=== PATIENT | female | born 1985 | race Hispanic/Latino ===

== ENCOUNTER → 2017-03-04 | Outpatient (CLI) | payer MEDICAID, OTHER | END | disposition home or self-care (01) | LOC: OIH 10:50 | PROVIDERS: ATTEND Family Medicine | DX: Z02.71 Encounter for disability determination (principal) | CPT/HCPCS: 72040; 72100 ==

== ENCOUNTER 2020-03-01 18:06 | Emergency (ER) | payer MEDICAID, OTHER ==
[2020-03-01 18:46] LABS: BASOPHILS % (AUTO) 0.6 % (0.0-5.0); EOSINOPHILS % (AUTO) 2.7 % (0.0-8.0); HEMATOCRIT 40.6 % (36-48); MEAN CORPUSCULAR HEMOGLOBIN 29.5 pg (27.0-33.0); MEAN CORPUSCULAR HGB CONC 33.3 g/dL (32.0-36.0); MEAN CORPUSCULAR VOLUME 88.8 fL (79-99); NEUTROPHILS % (AUTO) 59.4 % (40.0-77.0); PLATELET COUNT (AUTO) 175 K/uL (130-400); RED BLOOD CELL COUNT(AUTO) 4.57 MIL/uL (4.00-5.50); WHITE BLOOD COUNT (AUTO) 7.2 K/uL (4.8-10.8)
[2020-03-01 18:56] LABS: CREATININE 0.6 mg/dL (0.5-1.5); POTASSIUM 3.9 mmol/L (3.5-5.1)
[2020-03-01 18:57] LABS: APPEARANCE,URINE Cloudy (CLEAR); BILIRUBIN,URINE Negative (NEGATIVE); COLOR,URINE Yellow (YELLOW); GLUCOSE, URINE (UA) Negative (NEGATIVE); KETONES,URINE Negative (NEGATIVE); LEUKOCYTE ESTERASE ,URINE Moderate (NEGATIVE); NITRATE,URINE Negative (NEGATIVE); OCCULT BLOOD,URINE Negative (NEGATIVE); PH,URINE 6.5 (5.0-8.0); PROTEIN,URINE Negative (NEGATIVE)
[2020-03-01 19:00] LABS: BILIRUBIN,TOTAL 0.6 mg/dL (0.2-1.0); MAGNESIUM 2.6 mg/dL (1.80-2.40); TOTAL PROTEIN, SERUM 7.6 g/dL (6.0-8.3)
[2020-03-01 19:06] LABS: AMPHET/METH SCREEN,URINE NEGATIVE (NEGATIVE); BARBITURATE SCREEN, URINE NEGATIVE (NEGATIVE); BENZODIAZEPINES SCREEN,URINE POSITIVE (NEGATIVE); CANNABINOID SCREEN,URINE POSITIVE (NEGATIVE); COCAINE SCREEN,URINE NEGATIVE (NEGATIVE); OPIATE SCREEN,URINE NEGATIVE (NEGATIVE); PHENCYCLIDINE SCREEN,URINE NEGATIVE (NEGATIVE)
[2020-03-01] MEDS ORDERED: ONDANSETRON HCL 4 MG/2 ML VIAL ONE (19:22)
[2020-03-01] MEDS ORDERED: MORPHINE SULFATE 4 MG/1ML SYG ONE (19:23)
[2020-03-01 19:32] LABS: BACTERIA,URINE Few /HPF (None Seen); RBC,URINE None Seen /HPF (0-1)
[2020-03-01] MEDS ORDERED: CEFTRIAXONE SODIUM 1 GM ONE (21:50)
[2020-03-01] MEDS ORDERED: SODIUM CHLORIDE 0.9% 50 ML IV ONE (21:52)
[2020-03-01] MEDS ORDERED: SODIUM CHLORIDE 0.9% 500ML 500 ML IV ONE (22:00)
== END 2020-03-01 22:47 | disposition home or self-care (01) ==
LOC: EDH 18:06
DX: K80.80 Other cholelithiasis without obstruction (principal); N39.0 Urinary tract infection, site not specified; F19.10 Other psychoactive substance abuse, uncomplicated
CPT/HCPCS: 36415; 76705; 80053; 80305; 81001; 81025; 82150; 83690; 83735; 85025; 87088; 96365; 96375; 99284; J0696; J2270; J2405; J7040

== ENCOUNTER 2024-06-11 23:00 | Inpatient (IN) | payer BC, MEDICAID ==
[~2024-06-11] VITALS: Ht 167.6 cm; Wt 86.0 kg
--- NOTE | 2024-06-11 23:02 | NUR ---
UA CUP PROVIDED
[2024-06-11 23:27] LABS: BASOPHILS # (AUTO) 0.04 K/uL (0.00-0.20); BASOPHILS % (AUTO) 0.3 % (0.0-5.0); EOSINOPHILS # (AUTO) 0.15 K/uL (0.00-0.70); EOSINOPHILS % (AUTO) 1.2 % (0.0-8.0); HEMATOCRIT 39.3 % (36-48); IMMATURE GRANULOCYTE ABSOLUTE 0.03 K/uL (0-1); LYMPHOCYTES % (AUTO) 16.2 % (21.0-51.0); MEAN CORPUSCULAR HEMOGLOBIN 29.8 pg (27.0-33.0); MEAN CORPUSCULAR HGB CONC 33.6 g/dL (32.0-36.0); MEAN CORPUSCULAR VOLUME 88.7 fL (79-99); MONOCYTES # (AUTO) 0.8 K/uL (0.1-1.0); NEUTROPHILS # (AUTO) 9.5 K/uL (1.8-7.7); NEUTROPHILS % (AUTO) 76.1 % (40.0-77.0); PLATELET COUNT (AUTO) 181 K/uL (130-400); RED BLOOD CELL COUNT(AUTO) 4.43 MIL/uL (4.00-5.50); RED CELL DISTRIBUTION WIDTH 12.7 % (11.0-15.5); WHITE BLOOD COUNT (AUTO) 12.5 K/uL (4.8-10.8)
[2024-06-11] MEDS: 0.9%NACL 1000ML 1,000 ML IV STA (23:30)
[2024-06-11] MEDS: morPHINE 2 MG SYG IVP STA (23:30)
[2024-06-11] MEDS: ondanSETRON 4MG INJ IVP STA (23:30)
[2024-06-11 23:35] LABS: CREATININE 0.8 mg/dL (0.5-1.0); POTASSIUM 3.7 mmol/L (3.5-5.1)
[2024-06-11 23:37] LABS: ADD UA MICROSCOPIC NO; APPEARANCE,URINE CLEAR (CLEAR); BILIRUBIN,URINE NEGATIVE (NEGATIVE); COLOR,URINE LIGHT-YELLOW (YELLOW); GLUCOSE, URINE (UA) NEGATIVE (NEGATIVE); KETONES,URINE NEGATIVE (NEGATIVE); LEUKOCYTE ESTERASE ,URINE NEGATIVE Leu/uL (NEGATIVE); NITRATE,URINE NEGATIVE (NEGATIVE); OCCULT BLOOD,URINE NEGATIVE (NEGATIVE); PH,URINE 6.5 (5.0-8.0); PROTEIN,URINE NEGATIVE (NEGATIVE); UROBILINOGEN,URINE 0.2 mg/dL (0.2-1.0)
[2024-06-12] VITALS (8 sets, daily range): BP systolic 102–116; BP diastolic 60–73; PULSE 72–107; RESP 18–21; TEMP 98–98.9; O2SAT 96–99
--- NOTE | 2024-06-12 00:14 | HMCIMG ---
CT ABDOMEN/PELVIS W/O CONTRAST HISTORY: Left lower abdominal pain COMPARISON: 05/07/2011 TECHNIQUE: Multiple sequential axial images of the abdomen and pelvis were obtained from the dome of the diaphragm through symphysis pubis. Patient was not given contrast through intravenous route. Oral contrast was not given. FINDINGS: No pleural effusion is seen bilaterally. There is no evidence of parenchymal disease or pulmonary nodule of the visualized lower lungs. Degenerative changes of the thoracolumbar spine are present. The heart is not enlarged. The liver, spleen, adrenal glands and pancreas are unremarkable. There is no evidence of hydronephrosis bilaterally. No evidence of renal stone is seen. Fecal material is seen in the colon. There are normal size retroperitoneal and mesenteric lymph nodes. No ascites is seen. No CT evidence of acute appendicitis is seen. Clinical correlation is recommended. There is mesenteric fat stranding adjacent to the sigmoid colon suspicious for early acute diverticulitis in the proper clinical setting. No focal abscess is seen. Pelvic sidewalls are symmetric bilaterally. The bladder is moderately distended. IMPRESSION: 1. There is mesenteric fat stranding adjacent to the sigmoid colon suspicious for early acute diverticulitis in the proper clinical setting. No focal abscess is seen. CT was performed with one or more following dose reduction techniques: automated exposure control, adjustment of the mA and kv according to patient's size, or use of a iterative reconstruction technique.
--- NOTE | 2024-06-12 00:24 | ERN ---
ED Note History of Present Illness Stated Complaint: RT LOWER ABD PAIN Chief Complaint: Abdominal Pain Time Seen by MD: 23:04 Time Seen by Midlevel: 23:10 Dictation: 38-year-old female coming in with complaints of left lower quadrant pain onset about 1800. Patient states she was having a bowel movement she felt she could not complete the bowel movement so she took some stool softeners and pain worsened. Denies any diarrhea or blood in stool. Denies any nausea or vomiting. Allergies: Coded Allergies: No Known Allergies (Unverified Allergy, Unknown, 06/11/24) Home Meds No Active Prescriptions or Reported Meds Past Medical History Past Medical History: No Pertinent History Surgical History: Cholecystectomy LMP: Jun 02, 2024 Review of System Dictation Constitutional: Negative for fever,chills, and weight loss Eyes: Negative for injury, pain,redness, and discharge ENT: Negative for injury,pain or swelling Cardiovascular: Negative for chest pain, palpitations, and edema Respiratory: Negative for shortness of breath, cough, and wheezing, Abdomen/GI: Complaining of left lower quadrant pain, nausea, vomiting, diarrhea, and constipation Back: Negative for injury and pain : Negative for injury, bleeding and discharge MS/Extremity: Negative for injury and deformity Skin: Negative for rash, and discoloration Neuro: Negative for headache, weakness, numbness, tingling, and seizure Psych: Negative for suicide ideation, homicidal ideation, and hallucinations Review of Systems: was completed Initial Vital Sign VS Vital Signs Date Time Temp Pulse Resp B/P (MAP) Pulse Ox O2 Delivery O2 Flow Rate FiO2 06/11/24 23:01 100.9 107 20 126/84 99 Room Air 06/12/24 00:51 0 21 Physical Exam Dictation General: awake, alert, NAD Head/Face: Normocephalic, atraumatic Eyes: PERRL, EOMI, vision at baseline ENT: oral cavity clear, TMs clear, no signs of infection Neck: Trachea midline, supple, no nuchal rigidity Cardiovascular: RRR, normal S1/S2, No MRGs, no JVD Respiratory: CTAB, no respiratory distress, No rales or wheezes Abdomen: Soft, drawn palpation to the left lower quadrant, non-distended, normal bowel sounds, no guarding or rebound. Skin: Warm, dry, normal turgor, no rash MS/Extremity: Pulses equal, no cyanosis, neurovascular intact, FROM Neuro: COAx4, GCS 15, strength 5/5, CN 2-12 intact, normal cerebellar exam, normal gait, Psych: Normal behavior, mood, and affect normal Results (Laboratory/Radiology) Laboratory/Radiology Laboratory Tests Test 06/11/24 23:20 06/11/24 23:30 White Blood Count 12.5 K/uL (4.8-10.8) H Red Blood Count 4.43 MIL/uL (4.00-5.50) Hemoglobin 13.2 g/dL (12.0-16.0) Hematocrit 39.3 % (36-48) Mean Corpuscular Volume 88.7 fL (79-99) Mean Corpuscular Hemoglobin 29.8 pg (27.0-33.0) Mean Corpuscular Hemoglobin Concent 33.6 g/dL (32.0-36.0) Red Cell Distribution Width 12.7 % (11.0-15.5) Platelet Count 181 K/uL (130-400) Mean Platelet Volume 11.5 fL (7.5-10.5) H Immature Granulocyte % (Auto) 0.2 % (0-1) Neutrophils (%) (Auto) 76.1 % (40.0-77.0) Lymphocytes (%) (Auto) 16.2 % (21.0-51.0) L Monocytes (%) (Auto) 6.0 % (3.0-13.0) Eosinophils (%) (Auto) 1.2 % (0.0-8.0) Basophils (%) (Auto) 0.3 % (0.0-5.0) Neutrophils # (Auto) 9.5 K/uL (1.8-7.7) H Lymphocytes # (Auto) 2.0 K/uL (1.0-4.8) Monocytes # (Auto) 0.8 K/uL (0.1-1.0) Eosinophils # (Auto) 0.15 K/uL (0.00-0.70) Basophils # (Auto) 0.04 K/uL (0.00-0.20) Absolute Immature Granulocyte (auto 0.03 K/uL (0-1) Nucleated Red Blood Cells 0.0 % (0.0-0.19) Sodium Level 139 mmol/L (136-145) Potassium Level 3.7 mmol/L (3.5-5.1) Chloride Level 102 mmol/L (101-111) Carbon Dioxide Level 32 mmol/L (21-32) Blood Urea Nitrogen 10 mg/dL (7-18) Creatinine 0.8 mg/dL (0.5-1.0) Glomerular Filtration Rate Calc 98 mL/min (>90) Random Glucose 116 mg/dL (70-105) H Total Calcium 9.0 mg/dL (8.5-10.1) Serum Test, Qualitative NEGATIVE (NEGATIVE) Urine Color LIGHT-YELLOW (YELLOW) Urine Appearance CLEAR (CLEAR) Urine pH 6.5 (5.0-8.0) Urine Specific [place] 1.016 (1.001-1.031) Urine Protein NEGATIVE mg/dL (NEGATIVE) Urine Glucose (UA) NEGATIVE mg/dL (NEGATIVE) Urine Ketones NEGATIVE mg/dL (NEGATIVE) Urine Occult Blood NEGATIVE (NEGATIVE) Urine Nitrate NEGATIVE (NEGATIVE) Urine Bilirubin NEGATIVE mg/dL (NEGATIVE) Urine Urobilinogen 0.2 mg/dL (0.2-1.0) Urine Leukocyte Esterase NEGATIVE Minerva/uL Labs Reviewed?: Yes CT Scan Comment: [place] [id number] [address] IMAGING REPORT Signed PATIENT: KAITLYNN CASTILLO MR#: [id number] : 1985 SEX: F AGE: 38 LOCATION: [facility] ORDER [id number] STATUS: [facility] REPORT#: [id number] SERVICE [id number] REASON: llq pain ORDERING PHYSICIAN: AURY HARGROVE NP PROCEDURE: ABD PEL WO - CT ABDOMEN/PELVIS W/O CONTRAST CT ABDOMEN/PELVIS W/O CONTRAST HISTORY: Left lower abdominal pain COMPARISON: 05/07/2011 TECHNIQUE: Multiple sequential axial images of the abdomen and pelvis were obtained from the dome of the diaphragm through symphysis pubis. Patient was not given contrast through intravenous route. Oral contrast was not given. FINDINGS: No pleural effusion is seen bilaterally. There is no evidence of parenchymal disease or pulmonary nodule of the visualized lower lungs. Degenerative changes of the thoracolumbar spine are present. The heart is not enlarged. The liver, spleen, adrenal glands and pancreas are unremarkable. There is no evidence of hydronephrosis bilaterally. No evidence of renal stone is seen. Fecal material is seen in the colon. There are normal size retroperitoneal and mesenteric lymph nodes. No ascites is seen. No CT evidence of acute appendicitis is seen. Clinical correlation is recommended. There is mesenteric fat stranding adjacent to the sigmoid colon suspicious for early acute diverticulitis in the proper clinical setting. No focal abscess is seen. Pelvic sidewalls are symmetric bilaterally. The bladder is moderately distended. IMPRESSION: 1. There is mesenteric fat stranding adjacent to the sigmoid colon suspicious for early acute diverticulitis in the proper clinical setting. No focal abscess is seen. CT was performed with one or more following dose reduction techniques: automated exposure control, adjustment of the mA and kv according to patient's size, or use of a iterative reconstruction technique. DICTATED BY: BILLY ESPARZA MD DATE: 06/12/24 000 ELECTRONICALLY SIGNED BY: BILLY ESPARZA MD DATE: 06/12/24 001 Close ED Course ED Course Orders Procedure Category Date Status Time Cbc With Differential LAB 06/11/24 Complete 23:07 Basic Metabolic Panel LAB 06/11/24 Complete 23:07 Testing, LAB 06/11/24 Complete Serum Hcg 23:07 Urinalysis Profile LAB 06/11/24 Complete 23:09 0.9%Nacl 1000ml (Ns PHA 06/11/24 In Process 1000ml) 23:09 Morphine 2mg Syg PHA 06/11/24 Complete (Morphine 2mg Syg) 23:09 Ondansetron 4mg Inj PHA 06/11/24 Complete (Zofran 4mg Inj) 23:09 Ct Abdomen/Pelvis W/O CT 06/11/24 Resulted Contrast 23:09 Morphine 2mg Syg PHA 06/12/24 Complete (Morphine 2mg Syg) 00:22 Ketorolac PHA 06/12/24 Complete Tromethamine 15mg/Ml 00:22 Zosyn 3.375gm+Ns 50ml PHA 06/12/24 Complete (Zosyn 3.375gm+Ns 00:51 Acetaminophen 500mg PHA 06/12/24 In Process Tab (Tylenol 500mg T 01:00 Current Medications Medications (Trade) Dose Ordered Sig/Kadeem Route PRN Reason Start Time Stop Time Status Last Admin Dose Admin Acetaminophen (TYLenol 500MG TAB) 1,000 mg ONCE ONCE PO 06/12/24 01:00 06/12/24 01:01 Ketorolac Tromethamine (toRADol) 15 mg ONCE STAT IV 06/12/24 00:22 06/12/24 00:30 DC 06/12/24 00:35 Morphine Sulfate (morPHINE 2MG SYG) 2 mg ONCE STAT IVP 06/11/24 23:09 06/11/24 23:12 DC 06/11/24 23:30 Morphine Sulfate (morPHINE 2MG SYG) 2 mg ONCE STAT IVP 06/12/24 00:22 06/12/24 00:30 DC 06/12/24 00:35 Ondansetron HCl (zoFRAN 4MG INJ) 4 mg ONCE STAT IVP 06/11/24 23:09 06/11/24 23:12 DC 06/11/24 23:30 Piperacillin Sod/ Tazobactam Sod (Zosyn 3.375gm+NS 50ml) 3.375 gm ONCE STAT IVPB 06/12/24 00:51 06/12/24 00:54 DC Sodium Chloride 1,000 ml @ 100 mls/hr Q10H STAT IV 06/11/24 23:09 06/12/24 09:08 06/11/24 23:30 Vital Signs Date Time Temp Pulse Resp B/P (MAP) Pulse Ox O2 Delivery O2 Flow Rate FiO2 06/12/24 00:51 100.4 95 19 114/70 100 Room Air* 0 21 06/11/24 23:01 100.9 107 20 126/84 99 Room Air Medical Decision Making MDM MDM: 38-year-old female coming in with complaints of left lower quadrant pain onset about 1800. Patient states she was having a bowel movement she felt she could not complete the bowel movement so she took some stool softeners and pain worsened. Denies any diarrhea or blood in stool. Denies any nausea or vomiting. Lab work unremarkable. Patient came in with a low-grade temp of a 100.9. CT scan shows acute early diverticulitis. Patient received two doses of morphine and Toradol is states she is still having abdominal pain. Plan was to discharge patient but unable to control pain. Patient now will be admitted for diverticulitis, intractable abdominal pain. Antibiotics initiated in the emergency room. Spoke to Dr. Timothy, okay to admit under their service. Differential diagnosis: Urinary tract infection, gastroenteritis, diverticulitis Rationale: Tests considered and ordered secondary to shared decision making include: labs, ECG and radiology Previous outside records reviewed: Old ER visits. Risk of complication and/or morbidity or mortality of patient management: None Medications-Per medication reconciliation Need for hospitalization: Patient does meet criteria for hospitalization. Need for emergency major/minor surgery: No There are no social concerns with this patient. Prescription drug management Prescriptions will include symptomatic care Patient's prior external medical records from other ER visits were reviewed by me as indicated. Prior testing and results from previous visits were reviewed. Prior tests were taken into account with medical decision making and resource utilization, independent historian/historians were used to obtain complete medical history. I independently interpreted the test that were performed, results were reviewed by me and considered findings on radiology if ordered. Medical management and examination interpretation discussions were had by me with other qualified healthcare professionals as indicated for the patient's care. DX & DISP Disposition: Inpatient Decision to Admit Date: Jun 12, 2024 Decision to Admit Time: 00:59 Departure Impression: Primary Impression: Diverticulitis Additional Impression: Intractable abdominal pain Condition: Stable Scripts No Active Prescriptions or Reported Meds Referrals: SOFÍA ROJAS MD (PCP) I have reviewed the case, and I agree with, Diagnosis and Plan AURY HARGROVE NP Jun 12, 2024 00:24
[2024-06-12] MEDS: ketOROlac 15MG/ML VIAL (15MG/ML) IV STA (00:35)
[2024-06-12] MEDS: morPHINE 2 MG SYG IVP STA (00:35)
--- NOTE | 2024-06-12 00:55 | NUR ---
PATIENT DID NOT BRING HOME MEDICATIONS
[2024-06-12] MEDS: acetaMINOPHEN 500 MG TABLET PO ONE (00:59)
[2024-06-12] MEDS: ZOSYN 3.375GM +NS 50ML IVPB STA (00:59)
[2024-06-12] MEDS ORDERED: ondanSETRON 4MG INJ IVP PRN (01:00)
[2024-06-12] MEDS ORDERED: acetaMINOPHEN 325 MG TAB PO PRN (01:00)
[2024-06-12] MEDS: DEXTROSE 5 % AND 0.9 % NACL 1,000 ML IV SCH (01:17)
[2024-06-12] MEDS ORDERED: DEXT20CA4 PO (03:35)
[2024-06-12 07:52] LABS: BASOPHILS # (AUTO) 0.03 K/uL (0.00-0.20); BASOPHILS % (AUTO) 0.3 % (0.0-5.0); EOSINOPHILS # (AUTO) 0.12 K/uL (0.00-0.70); HEMATOCRIT 36.8 % (36-48); IMMATURE GRANULOCYTE ABSOLUTE 0.04 K/uL (0-1); LYMPHOCYTES # (AUTO) 1.8 K/uL (1.0-4.8); LYMPHOCYTES % (AUTO) 15.1 % (21.0-51.0); MEAN CORPUSCULAR HEMOGLOBIN 29.8 pg (27.0-33.0); MEAN CORPUSCULAR HGB CONC 33.2 g/dL (32.0-36.0); MEAN CORPUSCULAR VOLUME 89.8 fL (79-99); MONOCYTES # (AUTO) 0.8 K/uL (0.1-1.0); MONOCYTES % (AUTO) 7.2 % (3.0-13.0); NEUTROPHILS # (AUTO) 8.8 K/uL (1.8-7.7); NEUTROPHILS % (AUTO) 76.1 % (40.0-77.0); PLATELET COUNT (AUTO) 165 K/uL (130-400); RED CELL DISTRIBUTION WIDTH 12.8 % (11.0-15.5); WHITE BLOOD COUNT (AUTO) 11.6 K/uL (4.8-10.8)
[2024-06-12 07:59] LABS: CREATININE 0.7 mg/dL (0.5-1.0); MAGNESIUM 1.7 mg/dL (1.80-2.40); POTASSIUM 4.2 mmol/L (3.5-5.1)
[2024-06-12] MEDS ORDERED: PoTASSium chloRIDE 20MEQ ER 20 MEQ ERTAB PO PRN (09:00)
[2024-06-12] MEDS ORDERED: 0.9%NACL 50ML IV SCH (09:00)
[2024-06-12] MEDS ORDERED: PoTASSium chl 10% ELIXIR 20MEQ 20 MEQ/15 ML UDCUP PO PRN (09:00)
[2024-06-12] MEDS ORDERED: PoTASSium chloRIDE 20MEQ/100ML 100 ML IV PRN (09:00)
[2024-06-12] MEDS: ZOSYN 3.375GM +NS 50ML IVPB SCH (10:09)
[2024-06-12] MEDS: MAGNESIUM 2GM PREMIX 50ML 50 ML IV PRN (15:39)
--- NOTE | 2024-06-12 16:08 | NUR ---
DCP -- Home Patient states lives with her four children in a house with one step entrance and tub. 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 States able to complete ADL's on her own. Denies medical devices. Denies home health services, home care provider or dialysis. Upon discharge, Jenny Bergman, Mother [phone]/So Ortega, Life Partner [phone] and assist with care, as needed. At this time, does not foresee additional medical needs. Addendum: 06/12/24 at 1611 by JOSEP LITTLE RN CM Amended: Links added.
--- NOTE | 2024-06-12 17:47 | CONS ---
GENERAL SURGERY CONSULTATION NOTE Date/Time Patient Seen: [June 12, 2024 ] Requesting Physician: [Dr. Cesar Aguirre ] Reason for Consultation: [ Diverticulitis] History of Present Illness: [Patient presents to the hospital with a about 4 day history with the constipation and abdominal pain. Associated with the constipation abdominal pain has been some nausea. Prior to onset of symptoms patient was tolerating regular diet, having regular bowel function. Patient denies any melena, hematochezia, hematuria. Under around the hospital patient had CT scan done and some lab work done. I personally reviewed patient's CT scan. Patient's CT scan shows severe amount of constipation and some stranding around the sigmoid colon. The sigmoid colon also shows signs of diverticulosis. Patient's lab work shows a leukocytosis. Patient was started on IV fluids and IV antibiotics.] Past Medical History: [ ADHD] Past Surgical History: [Cholecystectomy ] Family History: [ Noncontributory] Social History: [ Patient denies any illicit drug use] Habits: [Never] smoker. [Denies] alcohol consumption. [Denies] illicit drug use Current Medications Medications (Trade) Dose Ordered Sig/Kadeem Route Start Time Stop Time Status Last Admin Dose Admin Dextrose/Sodium Chloride 1,000 ml @ 100 mls/hr Q10H IV 06/12/24 01:00 06/12/24 17:41 DC 06/12/24 17:07 100 MLS/HR Ketorolac Tromethamine (toRADol) 15 mg ONCE STAT IV 06/12/24 00:22 06/12/24 00:30 DC 06/12/24 00:35 15 MG Lactated Ringer's 1,000 ml @ 125 mls/hr Q8H IV 06/12/24 18:00 07/12/24 17:59 UNV Morphine Sulfate (morPHINE 2MG SYG) 2 mg ONCE STAT IVP 06/11/24 23:09 06/11/24 23:12 DC 06/11/24 23:30 2 MG Morphine Sulfate (morPHINE 2MG SYG) 2 mg ONCE STAT IVP 06/12/24 00:22 06/12/24 00:30 DC 06/12/24 00:35 2 MG Ondansetron HCl (zoFRAN 4MG INJ) 4 mg ONCE STAT IVP 06/11/24 23:09 06/11/24 23:12 DC 06/11/24 23:30 4 MG Piperacillin Sod/ Tazobactam Sod (Zosyn 3.375gm+NS 50ml) 3.375 gm ONCE STAT IVPB 06/12/24 00:51 06/12/24 00:54 DC 06/12/24 00:59 3.375 GM Piperacillin Sod/ Tazobactam Sod (Zosyn 3.375gm+NS 50ml) 3.375 gm Q8H IVPB 06/12/24 09:00 06/22/24 08:59 06/12/24 17:08 3.375 GM Sodium Chloride 1,000 ml @ 100 mls/hr Q10H STAT IV 06/11/24 23:09 06/12/24 09:08 DC 06/11/24 23:30 100 MLS/HR Sodium Chloride (NS 50ml) 50 ml AD IV 06/12/24 09:00 06/12/24 01:11 DC Review of Systems: Fourteen point review of systems negative except was mentioned in history of present illness Physical Examination: PHYSICAL EXAM EYES: Sclera white HENT: Oral nasal mucosa pink and moist NECK: Supple, . LUNGS: Unlabored CARDIOVASCULAR: Regular rate and rhythm ABDOMEN: Slightly protuberant. Tender to palpation in left lower quadrant. No rebound. No peritoneal signs. CENTRAL NERVOUS SYSTEM: Awake, alert, oriented x3 SKIN: No rashes, no swelling. LYMPHATICS: No peripheral lymphadenopathy MUSCULOSKELETAL: Motor and sensory function grossly intact EXTREMITIES: No cyanosis or clubbing Vital Signs (last 8hr) Date Time Temp Pulse Resp B/P (MAP) Pulse Ox O2 Delivery O2 Flow Rate FiO2 06/12/24 16:00 98 18 112/63 100 Room Air 06/12/24 12:00 98.2 80 18 116/73 91 Room Air Laboratory: [ ] Hematology Labs: Test 06/12/24 07:46 Range/Units White Blood Count 11.6 H 4.8-10.8 K/uL Red Blood Count 4.10 4.00-5.50 MIL/uL Hemoglobin 12.2 12.0-16.0 g/dL Hematocrit 36.8 36-48 % Mean Corpuscular Volume 89.8 79-99 fL Mean Corpuscular Hemoglobin 29.8 27.0-33.0 pg Mean Corpuscular Hemoglobin Concent 33.2 32.0-36.0 g/dL Red Cell Distribution Width 12.8 11.0-15.5 % Platelet Count 165 130-400 K/uL Mean Platelet Volume 11.4 H 7.5-10.5 fL Immature Granulocyte % (Auto) 0.3 0-1 % Neutrophils (%) (Auto) 76.1 40.0-77.0 % Lymphocytes (%) (Auto) 15.1 L 21.0-51.0 % Monocytes (%) (Auto) 7.2 3.0-13.0 % Eosinophils (%) (Auto) 1.0 0.0-8.0 % Basophils (%) (Auto) 0.3 0.0-5.0 % Neutrophils # (Auto) 8.8 H 1.8-7.7 K/uL Lymphocytes # (Auto) 1.8 1.0-4.8 K/uL Monocytes # (Auto) 0.8 0.1-1.0 K/uL Eosinophils # (Auto) 0.12 0.00-0.70 K/uL Basophils # (Auto) 0.03 0.00-0.20 K/uL Absolute Immature Granulocyte (auto 0.04 0-1 K/uL Nucleated Red Blood Cells 0.0 0.0-0.19 % Chemistry Labs: Test 06/12/24 07:46 06/11/24 23:20 Range/Units Sodium Level 143 136-145 mmol/L Potassium Level 4.2 3.5-5.1 mmol/L Chloride Level 108 101-111 mmol/L Carbon Dioxide Level 31 21-32 mmol/L Blood Urea Nitrogen 11 7-18 mg/dL Creatinine 0.7 0.5-1.0 mg/dL Glomerular Filtration Rate Calc 115 >90 mL/min Random Glucose 108 H 70-105 mg/dL Total Calcium 8.3 L 8.5-10.1 mg/dL Magnesium Level 1.70 L 1.80-2.40 mg/dL Serum Test, Qualitative NEGATIVE NEGATIVE Diagnostics / Radiology: [Copy/Paste Echos/Imaging Report here] Assessment: [Diverticulitis of the sigmoid colon. ] Plan: [We will plan to treat the patient conservatively. NPO, IV fluids, IV antibiotics. If patient's condition does not resolve or shows signs of improvement between 24-48 hours patient may need to Floyd's procedure. This was discussed with the patient and she indicates she understands. ] ZBIGNIEW RIZVI MD Jun 12, 2024 17:47
[2024-06-12] MEDS: LACTATED RINGERS 1000ML 1,000 ML IV SCH (18:14)
[2024-06-12] MEDS: morPHINE 2 MG SYG IVP PRN (18:55)
[2024-06-13 00:24] VITALS: BP 111/79; PULSE 76; RESP 20; TEMP 98.6
[2024-06-13 04:00] VITALS: BP 112/70; PULSE 77; RESP 20; TEMP 98.9
--- NOTE | 2024-06-13 04:41 | HP ---
DATE OF SERVICE: 06/12/2024 HISTORY AND PHYSICAL PRESENTING COMPLAINT: Fever and abdominal pain. HISTORY OF PRESENT ILLNESS: This is a 38-year-old female with no significant past medical history, presented to the Emergency Room with left lower quadrant abdominal pain. Pain started about one day ago. Nonradiating, localized to the left lower quadrant. Also, complained of some nausea, but no vomiting. The patient has some fever, no cough, no hemoptysis or pleuritic pain. Denied bleeding tendency. No rashes or itchiness, no headache or dizziness. PAST MEDICAL HISTORY: None. PAST SURGICAL HISTORY: Cholecystectomy. ALLERGIES: No known drug allergy. HOME MEDICATIONS: None. SOCIAL HISTORY: No alcohol, tobacco or illicit drug use. FAMILY HISTORY: Noncontributory. REVIEW OF SYSTEMS: CONSTITUTIONAL: Positive for fever and chills. No weight loss or night sweats. EYES: No eye pain. No photophobia or diplopia. HENT: No sore throat. No rhinorrhea or earache. NECK: No neck pain or neck swelling. RESPIRATORY: No cough. No hemoptysis or pleuritic pain. CARDIOVASCULAR: No chest pain. No palpitation or orthopnea. GASTROINTESTINAL: Positive for nausea. No vomiting. Positive for left lower quadrant abdominal pain. Denies diarrhea. GENITOURINARY: No dysuria, urgency or urinary frequency. CENTRAL NERVOUS SYSTEM: No headache, dizziness or slurred speech. PSYCHIATRY: No depression. No suicidal ideation. PHYSICAL EXAMINATION: GENERAL: Young female, awake. VITAL SIGNS: Temperature 100.4, pulse 107, respiratory rate 21, BP 107/69. EYES: No icterus. Pupils equal and reactive. HENT: No oral thrush seen. Moist oral mucosa. NECK: Supple. No JVD or thyromegaly. LUNGS: Good air entry. No rales. No rhonchi. CARDIOVASCULAR: S1, S2 regular, tachycardic. No murmur heard. ABDOMEN: Obese, soft. Bowel sound is present. Tenderness in left lower quadrant. CENTRAL NERVOUS SYSTEM: Awake, alert, oriented x 3. No focal deficits. SKIN: No rashes. No itchiness. LYMPHATIC: No peripheral lymphadenopathy. BACK: No deformity. No pressure ulcer. LABORATORY DATA: Sodium 139, potassium 3.7, BUN 10, creatinine 0.8. WBC 12.5, hemoglobin 13.2, platelet 131. Urinalysis is negative. RADIOLOGY: CT of the abdomen reported as inflammation involving the sigmoid colon with active diverticulitis. No perforation. ASSESSMENT: A 38-year-old female with no significant past medical history, presenting with fever and left lower quadrant abdominal pain. Current problems include: * Sepsis. * Diverticulitis. * Abdominal pain. PLAN: * The patient will be admitted to medical floor. * Start the patient on Zosyn. * The patient will be made n.p.o. * Start the patient on D5 normal saline. * General Surgery evaluation. * Morphine as needed for pain. * Tylenol as needed for pain or fever. * Home medication will be reconciled. * Zofran as needed for nausea and vomiting. TID: [id number] RECEIPT: [id number] MTDD
[2024-06-13 05:26] LABS: BASOPHILS # (AUTO) 0.03 K/uL (0.00-0.20); BASOPHILS % (AUTO) 0.4 % (0.0-5.0); EOSINOPHILS # (AUTO) 0.13 K/uL (0.00-0.70); EOSINOPHILS % (AUTO) 1.6 % (0.0-8.0); HEMATOCRIT 36.2 % (36-48); IMMATURE GRANULOCYTE ABSOLUTE 0.03 K/uL (0-1); LYMPHOCYTES # (AUTO) 1.7 K/uL (1.0-4.8); LYMPHOCYTES % (AUTO) 21.3 % (21.0-51.0); MEAN CORPUSCULAR HEMOGLOBIN 29.6 pg (27.0-33.0); MEAN CORPUSCULAR HGB CONC 32.6 g/dL (32.0-36.0); MONOCYTES # (AUTO) 0.5 K/uL (0.1-1.0); MONOCYTES % (AUTO) 6.3 % (3.0-13.0); NEUTROPHILS # (AUTO) 5.6 K/uL (1.8-7.7); PLATELET COUNT (AUTO) 146 K/uL (130-400); RED BLOOD CELL COUNT(AUTO) 3.98 MIL/uL (4.00-5.50); RED CELL DISTRIBUTION WIDTH 12.8 % (11.0-15.5); WHITE BLOOD COUNT (AUTO) 7.9 K/uL (4.8-10.8)
[2024-06-13 06:19] LABS: CREATININE 0.8 mg/dL (0.5-1.0); MAGNESIUM 2.1 mg/dL (1.80-2.40); POTASSIUM 3.9 mmol/L (3.5-5.1)
[2024-06-13 08:00] VITALS: BP 110/70; PULSE 61; RESP 16; TEMP 98.6
[2024-06-13 12:00] VITALS: BP 99/69; PULSE 80; RESP 18; TEMP 98.5
[2024-06-13 16:00] VITALS: BP 127/76; PULSE 86; RESP 18; TEMP 99.2
--- NOTE | 2024-06-13 18:20 | PN ---
INFECTIOUS DISEASE PROGRESS NOTE Date of Service: Jun 13, 2024 SUBJECTIVE: Patient was seen and examined at bedside in room room 414. Patient is awake, alert and oriented x3. Patient has remained afebrile for the past 24 hours and the WBC has trended down to 7.9. The abdominal pain is mostly on the left side. No reports of nausea or vomiting. We will continue on Zosyn IV every 8 hours. Patient is to remain NPO as recommended by General surgery. PHYSICAL EXAM EYES: Anicteric. Pupils equal and reactive. HENT: No oral thrush seen, moist Oral mucosa. NECK: Supple, no JVD or thyromegaly. LUNGS: Good air entry. No rales, no rhonchi. CARDIOVASCULAR: S1, S2 regular. No murmur heard. ABDOMEN: Soft, bowel sounds present, no organomegaly. Abdominal pain mostly on the left side. CENTRAL NERVOUS SYSTEM: Awake, alert, oriented x 3. SKIN: No rashes, no swelling. LYMPHATICS: No peripheral lymphadenopathy. MUSCULOSKELETAL: No joint swelling, erythema or tenderness. EXTREMITIES: No cyanosis or clubbing. BACK: No deformity, no pressure ulcer. GENITOURINARY: No dysuria or hematuria. Vital Sign (Last 12 Hours) 06/13/24 06/13/24 06/13/24 08:00 12:00 16:00 Temp 98.6 98.4 99.1 Pulse 61 80 86 Resp 16 18 18 B/P (MAP) 110/70 99/69 127/76 Pulse Ox 99 98 100 O2 Delivery Room Air Room Air Room Air Intake & Output (last 24hrs) 0 06/12/24 06/12/24 06/13/24 14:59 22:59 06:59 Output Total 400 ml Balance -400 ml LABS: Laboratory: Test 06/13/24 05:12 06/11/24 23:30 06/11/24 23:20 Range/Units White Blood Count 7.9 # 4.8-10.8 K/uL Red Blood Count 3.98 L 4.00-5.50 MIL/uL Hemoglobin 11.8 L 12.0-16.0 g/dL Hematocrit 36.2 36-48 % Mean Corpuscular Volume 91.0 79-99 fL Mean Corpuscular Hemoglobin 29.6 27.0-33.0 pg Mean Corpuscular Hemoglobin Concent 32.6 32.0-36.0 g/dL Red Cell Distribution Width 12.8 11.0-15.5 % Platelet Count 146 130-400 K/uL Mean Platelet Volume 11.7 H 7.5-10.5 fL Immature Granulocyte % (Auto) 0.4 0-1 % Neutrophils (%) (Auto) 70.0 40.0-77.0 % Lymphocytes (%) (Auto) 21.3 21.0-51.0 % Monocytes (%) (Auto) 6.3 3.0-13.0 % Eosinophils (%) (Auto) 1.6 0.0-8.0 % Basophils (%) (Auto) 0.4 0.0-5.0 % Neutrophils # (Auto) 5.6 1.8-7.7 K/uL Lymphocytes # (Auto) 1.7 1.0-4.8 K/uL Monocytes # (Auto) 0.5 0.1-1.0 K/uL Eosinophils # (Auto) 0.13 0.00-0.70 K/uL Basophils # (Auto) 0.03 0.00-0.20 K/uL Absolute Immature Granulocyte (auto 0.03 0-1 K/uL Nucleated Red Blood Cells 0.0 0.0-0.19 % Sodium Level 143 136-145 mmol/L Potassium Level 3.9 3.5-5.1 mmol/L Chloride Level 107 101-111 mmol/L Carbon Dioxide Level 28 21-32 mmol/L Blood Urea Nitrogen 5 L 7-18 mg/dL Creatinine 0.8 0.5-1.0 mg/dL Glomerular Filtration Rate Calc 98 >90 mL/min Random Glucose 85 70-105 mg/dL Total Calcium 8.2 L 8.5-10.1 mg/dL Magnesium Level 2.10 1.80-2.40 mg/dL Urine Color LIGHT-YELLOW YELLOW Urine Appearance CLEAR CLEAR Urine pH 6.5 5.0-8.0 Urine Specific [place] 1.016 1.001-1.031 Urine Protein NEGATIVE NEGATIVE mg/dL Urine Glucose (UA) NEGATIVE NEGATIVE mg/dL Urine Ketones NEGATIVE NEGATIVE mg/dL Urine Occult Blood NEGATIVE NEGATIVE Urine Nitrate NEGATIVE NEGATIVE Urine Bilirubin NEGATIVE NEGATIVE mg/dL Urine Urobilinogen 0.2 0.2-1.0 mg/dL Urine Leukocyte Esterase NEGATIVE NEGATIVE [place]/uL Serum Test, Qualitative NEGATIVE NEGATIVE DIAGNOSTICS / RADIOLOGY: PATIENT: KAITLYNN CASTILLO MR#: [id number] : 1985 SEX: F AGE: 38 LOCATION: [facility] ORDER 10 STATUS: REG ER REPORT#: [id number] SERVICE 08 REASON: llq pain ORDERING PHYSICIAN: AURY HARGROVE NP PROCEDURE: ABD PEL WO - CT ABDOMEN/PELVIS W/O CONTRAST CT ABDOMEN/PELVIS W/O CONTRAST HISTORY: Left lower abdominal pain COMPARISON: 05/07/2011 TECHNIQUE: Multiple sequential axial images of the abdomen and pelvis were obtained from the dome of the diaphragm through symphysis pubis. Patient was not given contrast through intravenous route. Oral contrast was not given. FINDINGS: No pleural effusion is seen bilaterally. There is no evidence of parenchymal disease or pulmonary nodule of the visualized lower lungs. Degenerative changes of the thoracolumbar spine are present. The heart is not enlarged. The liver, spleen, adrenal glands and pancreas are unremarkable. There is no evidence of hydronephrosis bilaterally. No evidence of renal stone is seen. Fecal material is seen in the colon. There are normal size retroperitoneal and mesenteric lymph nodes. No ascites is seen. No CT evidence of acute appendicitis is seen. Clinical correlation is recommended. There is mesenteric fat stranding adjacent to the sigmoid colon suspicious for early acute diverticulitis in the proper clinical setting. No focal abscess is seen. Pelvic sidewalls are symmetric bilaterally. The bladder is moderately distended. IMPRESSION: 1. There is mesenteric fat stranding adjacent to the sigmoid colon suspicious for early acute diverticulitis in the proper clinical setting. No focal abscess is seen. CT was performed with one or more following dose reduction techniques: automated exposure control, adjustment of the mA and kv according to patient's size, or use of a iterative reconstruction technique. DICTATED BY: BILLY ESPARZA MD DATE: 06/12/24 0008 ASSESSMENT: Acute diverticulitis. Leukocytosis, resolving. Abdominal pain. PLAN: Continue Zosyn IV. We will follow general surgeon recommendations. Continue pain management. Continue IV fluids. We will monitor electrolytes. This case was reviewed and discussed with my supervising physician and the above assessment and plan was formulated and agreed upon. ATTESTATION BY PHYSICIAN I have seen and examined the patient. I reviewed the documentation, medical decision making, and treatment plan as noted by the mid-level provider above. I agree with the findings and plan of care. ANNA GONZALEZ MD, MIRTA [facility] Jun 13, 2024 18:20
[2024-06-13 19:00] VITALS: BP 120/75; PULSE 76; RESP 20; TEMP 98.1
[2024-06-14] VITALS (9 sets, daily range): BP systolic 99–119; BP diastolic 58–77; PULSE 75–84; RESP 14–21; TEMP 98–99; O2SAT 98
--- NOTE | 2024-06-14 18:35 | PN ---
GENERAL SURGERY PROGRESS NOTE Date/Time Patient Seen: [June 14, 2024 ] Problem List: [Diverticulitis ] Interval History: [ Patient indicates the pain is significantly improved however she still has pain. Patient admits to some flatus but denies any bowel function. Patient has been ambulating halls.] Current Medications Medications (Trade) Dose Ordered Sig/Kadeem Route Start Time Stop Time Status Last Admin Dose Admin Dextrose/Sodium Chloride 1,000 ml @ 100 mls/hr Q10H IV 06/12/24 01:00 06/12/24 17:41 DC 06/12/24 17:07 100 MLS/HR Ketorolac Tromethamine (toRADol) 15 mg ONCE STAT IV 06/12/24 00:22 06/12/24 00:30 DC 06/12/24 00:35 15 MG Lactated Ringer's 1,000 ml @ 125 mls/hr Q8H IV 06/12/24 18:00 07/12/24 17:59 06/14/24 18:30 125 MLS/HR Morphine Sulfate (morPHINE 2MG SYG) 2 mg ONCE STAT IVP 06/11/24 23:09 06/11/24 23:12 DC 06/11/24 23:30 2 MG Morphine Sulfate (morPHINE 2MG SYG) 2 mg ONCE STAT IVP 06/12/24 00:22 06/12/24 00:30 DC 06/12/24 00:35 2 MG Ondansetron HCl (zoFRAN 4MG INJ) 4 mg ONCE STAT IVP 06/11/24 23:09 06/11/24 23:12 DC 06/11/24 23:30 4 MG Piperacillin Sod/ Tazobactam Sod (Zosyn 3.375gm+NS 50ml) 3.375 gm ONCE STAT IVPB 06/12/24 00:51 06/12/24 00:54 DC 06/12/24 00:59 3.375 GM Piperacillin Sod/ Tazobactam Sod (Zosyn 3.375gm+NS 50ml) 3.375 gm Q8H IVPB 06/12/24 09:00 06/22/24 08:59 06/14/24 16:31 3.375 GM Sodium Chloride 1,000 ml @ 100 mls/hr Q10H STAT IV 06/11/24 23:09 06/12/24 09:08 DC 06/11/24 23:30 100 MLS/HR Sodium Chloride (NS 50ml) 50 ml AD IV 06/12/24 09:00 06/12/24 01:11 DC Physical Examination: Awake, alert, oriented x3 Unlabored Regular rate and rhythm Abdomen soft, slightly tender in the left lower quadrant and epigastrium. No rebound. No peritoneal signs. Vital Signs (last 8hr) Date Time Temp Pulse Resp B/P (MAP) Pulse Ox O2 Delivery O2 Flow Rate FiO2 06/14/24 16:00 98.4 84 20 119/77 100 Room Air 06/14/24 11:59 99.0 78 14 112/64 98 Room Air Laboratory: [ ] Hematology Labs: Test 06/13/24 05:12 Range/Units White Blood Count 7.9 # 4.8-10.8 K/uL Red Blood Count 3.98 L 4.00-5.50 MIL/uL Hemoglobin 11.8 L 12.0-16.0 g/dL Hematocrit 36.2 36-48 % Mean Corpuscular Volume 91.0 79-99 fL Mean Corpuscular Hemoglobin 29.6 27.0-33.0 pg Mean Corpuscular Hemoglobin Concent 32.6 32.0-36.0 g/dL Red Cell Distribution Width 12.8 11.0-15.5 % Platelet Count 146 130-400 K/uL Mean Platelet Volume 11.7 H 7.5-10.5 fL Immature Granulocyte % (Auto) 0.4 0-1 % Neutrophils (%) (Auto) 70.0 40.0-77.0 % Lymphocytes (%) (Auto) 21.3 21.0-51.0 % Monocytes (%) (Auto) 6.3 3.0-13.0 % Eosinophils (%) (Auto) 1.6 0.0-8.0 % Basophils (%) (Auto) 0.4 0.0-5.0 % Neutrophils # (Auto) 5.6 1.8-7.7 K/uL Lymphocytes # (Auto) 1.7 1.0-4.8 K/uL Monocytes # (Auto) 0.5 0.1-1.0 K/uL Eosinophils # (Auto) 0.13 0.00-0.70 K/uL Basophils # (Auto) 0.03 0.00-0.20 K/uL Absolute Immature Granulocyte (auto 0.03 0-1 K/uL Nucleated Red Blood Cells 0.0 0.0-0.19 % Chemistry Labs: Test 06/13/24 05:12 Range/Units Sodium Level 143 136-145 mmol/L Potassium Level 3.9 3.5-5.1 mmol/L Chloride Level 107 101-111 mmol/L Carbon Dioxide Level 28 21-32 mmol/L Blood Urea Nitrogen 5 L 7-18 mg/dL Creatinine 0.8 0.5-1.0 mg/dL Glomerular Filtration Rate Calc 98 >90 mL/min Random Glucose 85 70-105 mg/dL Total Calcium 8.2 L 8.5-10.1 mg/dL Magnesium Level 2.10 1.80-2.40 mg/dL Diagnostics / Radiology: [Copy/Paste Echos/Imaging Report here] Impression and Plan: [ Patient with diverticulitis appears to be responding to conservative management. I would keep her NPO for at least another 24-48 hours. Ambulate. Pulmonary toilet. Continue IV antibiotics.] ZBIGNIEW RIZVI MD Jun 14, 2024 18:35
--- NOTE | 2024-06-14 20:50 | PN ---
INFECTIOUS DISEASE PROGRESS NOTE Date of Service: Jun 14, 2024 SUBJECTIVE: Patient was seen and examined at bedside in room room 414. Patient is awake, alert and oriented x3. Patient is sitting up on the bedside chair. Family member visiting at bedside. Patient reported very minimal abdominal pain. General surgery following patient. No episodes of nausea or vomiting reported. Patient is afebrile, temperature 99.0. Will continue on Zosyn IV. No other issues reported by nursing. PHYSICAL EXAM EYES: Anicteric. Pupils equal and reactive. HENT: No oral thrush seen, moist Oral mucosa. NECK: Supple, no JVD or thyromegaly. LUNGS: Good air entry. No rales, no rhonchi. CARDIOVASCULAR: S1, S2 regular. No murmur heard. ABDOMEN: Soft, bowel sounds present. Abdominal pain mostly on the left side. CENTRAL NERVOUS SYSTEM: Awake, alert, oriented x 3. SKIN: No rashes, no swelling. LYMPHATICS: No peripheral lymphadenopathy. MUSCULOSKELETAL: No joint swelling, erythema or tenderness. EXTREMITIES: No cyanosis or clubbing. BACK: No deformity, no pressure ulcer. GENITOURINARY: No dysuria or hematuria. Vital Sign (Last 12 Hours) 06/14/24 06/14/24 06/14/24 06/14/24 11:59 16:00 19:25 20:00 Temp 99.0 98.4 98.1 Pulse 78 84 79 Resp 14 20 20 B/P (MAP) 112/64 119/77 111/77 Pulse Ox 98 100 98 O2 Delivery Room Air Room Air Room Air Room Air* O2 Flow Rate 0 FiO2 21 Intake & Output (last 24hrs) 06/13/24 06/13/24 06/14/24 14:59 22:59 06:59 Intake Total 50.0 ml Balance 50.0 ml LABS: Laboratory: Test 06/13/24 05:12 Range/Units White Blood Count 7.9 # 4.8-10.8 K/uL Red Blood Count 3.98 L 4.00-5.50 MIL/uL Hemoglobin 11.8 L 12.0-16.0 g/dL Hematocrit 36.2 36-48 % Mean Corpuscular Volume 91.0 79-99 fL Mean Corpuscular Hemoglobin 29.6 27.0-33.0 pg Mean Corpuscular Hemoglobin Concent 32.6 32.0-36.0 g/dL Red Cell Distribution Width 12.8 11.0-15.5 % Platelet Count 146 130-400 K/uL Mean Platelet Volume 11.7 H 7.5-10.5 fL Immature Granulocyte % (Auto) 0.4 0-1 % Neutrophils (%) (Auto) 70.0 40.0-77.0 % Lymphocytes (%) (Auto) 21.3 21.0-51.0 % Monocytes (%) (Auto) 6.3 3.0-13.0 % Eosinophils (%) (Auto) 1.6 0.0-8.0 % Basophils (%) (Auto) 0.4 0.0-5.0 % Neutrophils # (Auto) 5.6 1.8-7.7 K/uL Lymphocytes # (Auto) 1.7 1.0-4.8 K/uL Monocytes # (Auto) 0.5 0.1-1.0 K/uL Eosinophils # (Auto) 0.13 0.00-0.70 K/uL Basophils # (Auto) 0.03 0.00-0.20 K/uL Absolute Immature Granulocyte (auto 0.03 0-1 K/uL Nucleated Red Blood Cells 0.0 0.0-0.19 % Sodium Level 143 136-145 mmol/L Potassium Level 3.9 3.5-5.1 mmol/L Chloride Level 107 101-111 mmol/L Carbon Dioxide Level 28 21-32 mmol/L Blood Urea Nitrogen 5 L 7-18 mg/dL Creatinine 0.8 0.5-1.0 mg/dL Glomerular Filtration Rate Calc 98 >90 mL/min Random Glucose 85 70-105 mg/dL Total Calcium 8.2 L 8.5-10.1 mg/dL Magnesium Level 2.10 1.80-2.40 mg/dL ASSESSMENT: Acute diverticulitis. Leukocytosis, resolving. Abdominal pain. PLAN: Continue Zosyn IV. Remains NPO as recommended by general surgery. Continue pain management. Continue IV fluids. We will monitor electrolytes. This case was reviewed and discussed with my supervising physician and the above assessment and plan was formulated and agreed upon. ATTESTATION BY PHYSICIAN I have seen and examined the patient. I reviewed the documentation, medical decision making, and treatment plan as noted by the mid-level provider above. I agree with the findings and plan of care. ANNA GONZALEZ MD, [facility]IRTA [facility] Jun 14, 2024 20:50
[2024-06-15] VITALS (7 sets, daily range): BP systolic 111–125; BP diastolic 70–81; PULSE 56–85; RESP 18–20; TEMP 97.7–98.5; O2SAT 99
[2024-06-15 04:27] LABS: HEMATOCRIT 35.9 % (36-48); MEAN CORPUSCULAR HGB CONC 32.9 g/dL (32.0-36.0); MEAN CORPUSCULAR VOLUME 88.2 fL (79-99); RED BLOOD CELL COUNT(AUTO) 4.07 MIL/uL (4.00-5.50); RED CELL DISTRIBUTION WIDTH 12.3 % (11.0-15.5)
[2024-06-15 04:44] LABS: CREATININE 0.6 mg/dL (0.5-1.0); MAGNESIUM 1.8 mg/dL (1.80-2.40); POTASSIUM 4.1 mmol/L (3.5-5.1)
--- NOTE | 2024-06-15 12:30 | PN ---
GENERAL SURGERY PROGRESS NOTE Date/Time Patient Seen: [ June 15, 2024] Problem List: [Diverticulitis ] Interval History: [Patient feels significantly better. She indicates it is only saw in the lower quadrant. Patient did have a bowel movement.] Current Medications Medications (Trade) Dose Ordered Sig/Kadeem Route Start Time Stop Time Status Last Admin Dose Admin Dextrose/Sodium Chloride 1,000 ml @ 100 mls/hr Q10H IV 06/12/24 01:00 06/12/24 17:41 DC 06/12/24 17:07 100 MLS/HR Ketorolac Tromethamine (toRADol) 15 mg ONCE STAT IV 06/12/24 00:22 06/12/24 00:30 DC 06/12/24 00:35 15 MG Lactated Ringer's 1,000 ml @ 125 mls/hr Q8H IV 06/12/24 18:00 07/12/24 17:59 06/15/24 08:43 125 MLS/HR Morphine Sulfate (morPHINE 2MG SYG) 2 mg ONCE STAT IVP 06/11/24 23:09 06/11/24 23:12 DC 06/11/24 23:30 2 MG Morphine Sulfate (morPHINE 2MG SYG) 2 mg ONCE STAT IVP 06/12/24 00:22 06/12/24 00:30 DC 06/12/24 00:35 2 MG Ondansetron HCl (zoFRAN 4MG INJ) 4 mg ONCE STAT IVP 06/11/24 23:09 06/11/24 23:12 DC 06/11/24 23:30 4 MG Piperacillin Sod/ Tazobactam Sod (Zosyn 3.375gm+NS 50ml) 3.375 gm ONCE STAT IVPB 06/12/24 00:51 06/12/24 00:54 DC 06/12/24 00:59 3.375 GM Piperacillin Sod/ Tazobactam Sod (Zosyn 3.375gm+NS 50ml) 3.375 gm Q8H IVPB 06/12/24 09:00 06/22/24 08:59 06/15/24 08:42 3.375 GM Sodium Chloride 1,000 ml @ 100 mls/hr Q10H STAT IV 06/11/24 23:09 06/12/24 09:08 DC 06/11/24 23:30 100 MLS/HR Sodium Chloride (NS 50ml) 50 ml AD IV 06/12/24 09:00 06/12/24 01:11 DC Physical Examination: Awake, alert, oriented x3 Unlabored Regular rate and rhythm Abdomen soft, minimally tender. No rebound. No peritoneal signs Vital Signs (last 8hr) Date Time Temp Pulse Resp B/P (MAP) Pulse Ox O2 Delivery O2 Flow Rate FiO2 06/15/24 12:00 98.2 85 20 124/81 100 Room Air 06/15/24 07:54 98.2 56 18 117/77 99 Room Air Laboratory: [ ] Hematology Labs: Test 06/15/24 04:06 Range/Units White Blood Count 7.0 4.8-10.8 K/uL Red Blood Count 4.07 4.00-5.50 MIL/uL Hemoglobin 11.8 L 12.0-16.0 g/dL Hematocrit 35.9 L 36-48 % Mean Corpuscular Volume 88.2 79-99 fL Mean Corpuscular Hemoglobin 29.0 27.0-33.0 pg Mean Corpuscular Hemoglobin Concent 32.9 32.0-36.0 g/dL Red Cell Distribution Width 12.3 11.0-15.5 % Platelet Count 157 130-400 K/uL Mean Platelet Volume 11.5 H 7.5-10.5 fL Nucleated Red Blood Cells 0.0 0.0-0.19 % Chemistry Labs: Test 06/15/24 04:06 Range/Units Sodium Level 140 136-145 mmol/L Potassium Level 4.1 3.5-5.1 mmol/L Chloride Level 104 101-111 mmol/L Carbon Dioxide Level 27 21-32 mmol/L Blood Urea Nitrogen 8 7-18 mg/dL Creatinine 0.6 0.5-1.0 mg/dL Glomerular Filtration Rate Calc 119 >90 mL/min Random Glucose 66 L 70-105 mg/dL Total Calcium 8.5 8.5-10.1 mg/dL Magnesium Level 1.80 1.80-2.40 mg/dL Diagnostics / Radiology: [Copy/Paste Echos/Imaging Report here] Impression and Plan: [ Patient is responding to her IV antibiotics. We will start her on clear liquid diet for now. Patient has a stay on clear liquid diet for about a week. Ambulate. Pulmonary toilet. When patient is ready patient can be transitioned to oral antibiotics and discharged home to stay on oral antibiotics for about two weeks. Patient will need a colonoscopy in about 6-8 weeks. Once patient comes off her clear liquid diet she can transition to a low residue diet while she is on antibiotics..] ZBIGNIEW RIZVI MD Jun 15, 2024 12:30
--- NOTE | 2024-06-15 17:43 | PN ---
INFECTIOUS DISEASE PROGRESS NOTE Date of Service: Jun 15, 2024 SUBJECTIVE: Patient was seen and examined at bedside in room room 414. During visit today patient continues NPO. No reports of nausea or vomiting. Patient ambulates well in the room. Patient reported abdominal pain is resolving. No nausea or vomiting reported. Will continue on Zosyn IV. We will continue to monitor patient's care. PHYSICAL EXAM EYES: Anicteric. Pupils equal and reactive. HENT: No oral thrush seen, moist Oral mucosa. NECK: Supple, no JVD or thyromegaly. LUNGS: Good air entry. No rales, no rhonchi. CARDIOVASCULAR: S1, S2 regular. No murmur heard. ABDOMEN: Soft, bowel sounds present. Abdominal pain resolving.. CENTRAL NERVOUS SYSTEM: Awake, alert, oriented x 3. SKIN: No rashes, no swelling. LYMPHATICS: No peripheral lymphadenopathy. MUSCULOSKELETAL: No joint swelling, erythema or tenderness. EXTREMITIES: No cyanosis or clubbing. BACK: No deformity, no pressure ulcer. GENITOURINARY: No dysuria or hematuria. Vital Sign (Last 12 Hours) 06/15/24 06/15/24 06/15/24 07:54 12:00 16:00 Temp 98.2 98.2 98.4 Pulse 56 85 78 Resp 18 20 20 B/P (MAP) 117/77 124/81 115/74 Pulse Ox 99 100 98 O2 Delivery Room Air Room Air Room Air Intake & Output (last 24hrs) 06/14/24 06/14/24 06/15/24 15:00 23:00 07:00 Intake Total 1500.0 ml Balance 1500.0 ml LABS: Laboratory: Test 06/15/24 04:06 Range/Units White Blood Count 7.0 4.8-10.8 K/uL Red Blood Count 4.07 4.00-5.50 MIL/uL Hemoglobin 11.8 L 12.0-16.0 g/dL Hematocrit 35.9 L 36-48 % Mean Corpuscular Volume 88.2 79-99 fL Mean Corpuscular Hemoglobin 29.0 27.0-33.0 pg Mean Corpuscular Hemoglobin Concent 32.9 32.0-36.0 g/dL Red Cell Distribution Width 12.3 11.0-15.5 % Platelet Count 157 130-400 K/uL Mean Platelet Volume 11.5 H 7.5-10.5 fL Nucleated Red Blood Cells 0.0 0.0-0.19 % Sodium Level 140 136-145 mmol/L Potassium Level 4.1 3.5-5.1 mmol/L Chloride Level 104 101-111 mmol/L Carbon Dioxide Level 27 21-32 mmol/L Blood Urea Nitrogen 8 7-18 mg/dL Creatinine 0.6 0.5-1.0 mg/dL Glomerular Filtration Rate Calc 119 >90 mL/min Random Glucose 66 L 70-105 mg/dL Total Calcium 8.5 8.5-10.1 mg/dL Magnesium Level 1.80 1.80-2.40 mg/dL ASSESSMENT: Acute diverticulitis. Leukocytosis, resolved. Abdominal pain. PLAN: Continue Zosyn IV. Continue pain management. Continue IV fluids. Continues NPO. We will monitor electrolytes. This case was reviewed and discussed with my supervising physician and the above assessment and plan was formulated and agreed upon. ATTESTATION BY PHYSICIAN I have seen and examined the patient. I reviewed the documentation, medical decision making, and treatment plan as noted by the mid-level provider above. I agree with the findings and plan of care. ANNA GONZALEZ MD, MIRTA L [facility] Jun 15, 2024 17:43
[2024-06-16 03:14] VITALS: BP 107/63; PULSE 57; RESP 18; TEMP 98
--- NOTE | 2024-06-16 04:55 | PN ---
GENERAL SURGERY PROGRESS NOTE Date/Time Patient Seen: [ June 16, 2024] Problem List: [Diverticulitis ] Interval History: [Patient tolerated clear liquids. Positive bowel function. Denies any pain..] Current Medications Medications (Trade) Dose Ordered Sig/Kadeem Route Start Time Stop Time Status Last Admin Dose Admin Dextrose/Sodium Chloride 1,000 ml @ 100 mls/hr Q10H IV 06/12/24 01:00 06/12/24 17:41 DC 06/12/24 17:07 100 MLS/HR Home Med (Home Medication) Dextroamphetamine/ Amphetamine (Dextroamp-Amp... DAILY PO 06/16/24 09:00 07/16/24 08:59 Ketorolac Tromethamine (toRADol) 15 mg ONCE STAT IV 06/12/24 00:22 06/12/24 00:30 DC 06/12/24 00:35 15 MG Lactated Ringer's 1,000 ml @ 125 mls/hr Q8H IV 06/12/24 18:00 07/12/24 17:59 06/16/24 01:12 125 MLS/HR Morphine Sulfate (morPHINE 2MG SYG) 2 mg ONCE STAT IVP 06/11/24 23:09 06/11/24 23:12 DC 06/11/24 23:30 2 MG Morphine Sulfate (morPHINE 2MG SYG) 2 mg ONCE STAT IVP 06/12/24 00:22 06/12/24 00:30 DC 06/12/24 00:35 2 MG Ondansetron HCl (zoFRAN 4MG INJ) 4 mg ONCE STAT IVP 06/11/24 23:09 06/11/24 23:12 DC 06/11/24 23:30 4 MG Piperacillin Sod/ Tazobactam Sod (Zosyn 3.375gm+NS 50ml) 3.375 gm ONCE STAT IVPB 06/12/24 00:51 06/12/24 00:54 DC 06/12/24 00:59 3.375 GM Piperacillin Sod/ Tazobactam Sod (Zosyn 3.375gm+NS 50ml) 3.375 gm Q8H IVPB 06/12/24 09:00 06/22/24 08:59 06/16/24 00:20 3.375 GM Sodium Chloride 1,000 ml @ 100 mls/hr Q10H STAT IV 06/11/24 23:09 06/12/24 09:08 DC 06/11/24 23:30 100 MLS/HR Sodium Chloride (NS 50ml) 50 ml AD IV 06/12/24 09:00 06/12/24 01:11 DC Physical Examination: Awake, alert, oriented x3 Unlabored Regular rate and rhythm Abdomen soft, nontender, nondistended Vital Signs (last 8hr) Date Time Temp Pulse Resp B/P (MAP) Pulse Ox O2 Delivery O2 Flow Rate FiO2 06/16/24 03:14 98.1 57 18 107/63 100 Room Air 06/15/24 23:24 97.7 71 19 116/70 100 Room Air Laboratory: [ ] Hematology Labs: Test 06/15/24 04:06 Range/Units White Blood Count 7.0 4.8-10.8 K/uL Red Blood Count 4.07 4.00-5.50 MIL/uL Hemoglobin 11.8 L 12.0-16.0 g/dL Hematocrit 35.9 L 36-48 % Mean Corpuscular Volume 88.2 79-99 fL Mean Corpuscular Hemoglobin 29.0 27.0-33.0 pg Mean Corpuscular Hemoglobin Concent 32.9 32.0-36.0 g/dL Red Cell Distribution Width 12.3 11.0-15.5 % Platelet Count 157 130-400 K/uL Mean Platelet Volume 11.5 H 7.5-10.5 fL Nucleated Red Blood Cells 0.0 0.0-0.19 % Chemistry Labs: Test 06/15/24 04:06 Range/Units Sodium Level 140 136-145 mmol/L Potassium Level 4.1 3.5-5.1 mmol/L Chloride Level 104 101-111 mmol/L Carbon Dioxide Level 27 21-32 mmol/L Blood Urea Nitrogen 8 7-18 mg/dL Creatinine 0.6 0.5-1.0 mg/dL Glomerular Filtration Rate Calc 119 >90 mL/min Random Glucose 66 L 70-105 mg/dL Total Calcium 8.5 8.5-10.1 mg/dL Magnesium Level 1.80 1.80-2.40 mg/dL Diagnostics / Radiology: [Copy/Paste Echos/Imaging Report here] Impression and Plan: [ Patient has responded well to her conservative management. We will continue clear liquids for one week. Can transitioned to oral antibiotics if okay with PCP. Patient could possibly be discharged home on clear liquids. Advance to a low residue diet after she gets off antibiotics. Follow up with me in two weeks...] ZBIGNIEW RIZVI MD Jun 16, 2024 04:55
[2024-06-16 05:02] LABS: BASOPHILS # (AUTO) 0.03 K/uL (0.00-0.20); BASOPHILS % (AUTO) 0.5 % (0.0-5.0); EOSINOPHILS # (AUTO) 0.15 K/uL (0.00-0.70); EOSINOPHILS % (AUTO) 2.7 % (0.0-8.0); HEMATOCRIT 34.9 % (36-48); IMMATURE GRANULOCYTE ABSOLUTE 0.02 K/uL (0-1); LYMPHOCYTES % (AUTO) 35.9 % (21.0-51.0); MEAN CORPUSCULAR HEMOGLOBIN 29.2 pg (27.0-33.0); MEAN CORPUSCULAR HGB CONC 33.2 g/dL (32.0-36.0); MEAN CORPUSCULAR VOLUME 87.9 fL (79-99); MONOCYTES # (AUTO) 0.4 K/uL (0.1-1.0); MONOCYTES % (AUTO) 6.8 % (3.0-13.0); NEUTROPHILS % (AUTO) 53.7 % (40.0-77.0); PLATELET COUNT (AUTO) 177 K/uL (130-400); RED BLOOD CELL COUNT(AUTO) 3.97 MIL/uL (4.00-5.50); RED CELL DISTRIBUTION WIDTH 12.3 % (11.0-15.5); WHITE BLOOD COUNT (AUTO) 5.6 K/uL (4.8-10.8)
[2024-06-16 05:12] LABS: CREATININE 0.6 mg/dL (0.5-1.0); POTASSIUM 3.5 mmol/L (3.5-5.1)
[2024-06-16 08:06] VITALS: BP 121/80; PULSE 63; RESP 16; TEMP 98.7
[2024-06-16] MEDS: AMPHETAMINE PO SCH (09:00)
[2024-06-16] MEDS: DEXTROAMPHETAMINE PO SCH (09:00)
--- NOTE | 2024-06-16 09:46 | NUR ---
MORPHINE GIVEN FOR PAIN AT THIS TIME.
--- NOTE | 2024-06-16 09:48 | NUR ---
DR RIZVI INFORMED OF PATIENT COMPLAINING OF NEW ONSET ABDOMINAL PAIN THAT RADIATES UPTO HER ESOPHAGUS.
--- NOTE | 2024-06-16 10:02 | NUR ---
NEW ORDERS RECEIVED FOR GI CONSULT
[2024-06-16] MEDS: SUCRALFATE 1 GM/10 ML PO ONE (10:29)
[2024-06-16 11:35] VITALS: BP 124/74; PULSE 85; RESP 18; TEMP 98.8
--- NOTE | 2024-06-16 13:27 | NUR ---
NEW ORDERS FOR GI CONSULT PER DR GONZALEZ RECEIVED .
--- NOTE | 2024-06-16 14:58 | NUR ---
DR GONZALEZ INFORMED THAT DR CONTRERAS WILL BE SEEING PATIENT IN AM.
[2024-06-16 16:19] VITALS: BP 120/79; PULSE 73; RESP 17; TEMP 98.6
[2024-06-16] MEDS: PANTOPrazole 40 MG TAB DR PO SCH (16:45)
[2024-06-16 20:00] VITALS: BP 106/72; PULSE 89; RESP 16; TEMP 98.1
[2024-06-16] MEDS: PoTASSium chloRIDE 20MEQ/100ML 100 ML IV ONE (20:33)
[2024-06-17 00:14] VITALS: BP 105/76; PULSE 71; RESP 16; TEMP 97.9
[2024-06-17 04:00] VITALS: BP 103/77; PULSE 68; RESP 17; TEMP 98.3
--- NOTE | 2024-06-17 05:01 | PN ---
INFECTIOUS DISEASE FOLLOWUP NOTE DATE OF SERVICE: 06/16/2024 SUBJECTIVE: The patient is seen and examined at bedside. The patient claims she epigastric pain after having liquid diet. The patient was given sucralfate, consult for possible EGD has been placed. No dysuria or hematuria. No suicidal ideation. No bleeding tendency. PHYSICAL EXAMINATION: VITAL SIGNS: Temperature 98.4. EYES: No icterus. Pupils equal and reactive. HENT: No oral thrush seen. Moist oral mucosa. NECK: Supple. No JVD or thyromegaly. LUNGS: Good air entry. No rales. No rhonchi. CARDIOVASCULAR: S1 and S2 regular. No murmur heard. ABDOMEN: Full, soft, nontender. Bowel sounds are present. CENTRAL NERVOUS SYSTEM: Awake, alert, oriented x 3. No focal deficits. SKIN: No rashes, no itchiness. LYMPHATIC: No peripheral lymphadenopathy. HEMATOLOGIC: No bleeding or petechial lesion seen. MUSCULOSKELETAL: No joint swelling, erythema or tenderness. ASSESSMENT: A 38-year-old admitted with abdominal pain. Current problems include. * Acute diverticulitis. * Abdominal pain. * Obesity. * Leukocytosis. * Possible gastritis. PLAN: * Continue Protonix. * Continue clear liquid diet. * Monitor electrolytes. * Continue GI prophylaxis. * Continue antiemetics. * The patient will be followed up closely. TID: [id number] RECEIPT: [id number] MTDD
[2024-06-17 08:00] VITALS: BP 113/77; PULSE 65; RESP 18; TEMP 97.7
--- NOTE | 2024-06-17 08:20 | NUR ---
EGD PATIENT REFUSING FOR EGD TO BE DONE IN-HOSPITAL. STATED PREFERS FOR BOTH EGD AND COLONOSCOPY OUTPATIENT RECOMMENDED BY DR. RIZVI. NOTIFIED DR. GONZALEZ, NO ORDERS GIVEN AT THIS TIME. WILL CONTINUE TO MONITOR.
[2024-06-17 09:30] VITALS: O2SAT 100
--- NOTE | 2024-06-17 11:14 | NUR ---
DISCHARGE DISCHARGE ORDERS OBTAINED FOR PATIENT TO BE DISCHARGED HOME. DISCHARGE INSTRUCTIONS AND DOCUMENTATION GIVEN TO PATIENT. VOICED UNDERSTANDING. IV DISCONTINUED, CATHETER INTACT, NO S/S OF INFECTION NOTED TO AREA. BANDS REMOVED. PATIENT WAITING FOR TRANSPORTATION.
--- NOTE | 2024-06-17 12:08 | NUR ---
DISCHARGE PATIENT LEFT VIA WHEELCHAIR, ACCOMPANIED BY FRIEND. NO S/S OF DISTRESS NOTED.
--- NOTE | 2024-06-17 20:48 | DS ---
DATE OF DISCHARGE: 06/17/2024 DISCHARGE SUMMARY PRESENTING COMPLAINT: Abdominal pain. HOSPITAL COURSE: A 38-year-old female with no significant past medical history, presented with abdominal pain and localized to the left side. The patient was found with diverticulitis and was admitted. The patient was managed conservatively with antibiotics, bowel rest and IV fluid. The patient was seen by General Surgery. The patient was found epigastric pain after being restarted on liquid diet. The patient was seen by Gastroenterology, who advised EGD, which the patient has opted to be done outpatient. FINAL DISCHARGE DIAGNOSES: * Acute diverticulitis without perforation. * Abdominal pain. * Possible gastritis. * Leukocytosis. * Obesity. PLAN: * The patient to be discharged home. * The patient will be given Augmentin. * The patient will be given Protonix. * Follow up with primary care physician. * Follow up with Gastroenterology for outpatient EGD. TID: [id number] RECEIPT: [id number] [facility]
== END 2024-06-17 12:00 | disposition home or self-care (01) | DRG 872 ==
LOC: EDH 23:00 → EDHIP 06-12 01:00 → 4CH 06-12 02:47
PROVIDERS: ADMIT Internal Medicine Infectious Disease; ATTEND Internal Medicine Infectious Disease
DX: A41.9 Sepsis, unspecified organism (principal); K57.32 Diverticulitis of large intestine without perforation or abscess without bleeding; K59.00 Constipation, unspecified; E66.9 Obesity, unspecified; K29.60 Other gastritis without bleeding; Z68.30 Body mass index [BMI] 30.0-30.9, adult
CPT/HCPCS: 36415; 74176; 80048; 81003; 83735; 84703; 85025; 85027; 99285; G0378; J1885; J2270; J2405; J2543; J3475; J3480; J7030; J7042; J7120; A4600